=== PATIENT | female | born 1995 ===

== ENCOUNTER → 2021-05-10 | Outpatient (CLI) | payer OTHER ==
--- NOTE | 2021-05-10 14:51 | REP ---
INDICATION: MUSCLE STRAIN. COMPARISON: None. TECHNIQUE: Five views FINDINGS: The compartments are symmetric and well maintained there is no acute fracture, dislocation, or subluxation. IMPRESSION: Within normal limits <Electronically signed by Kehinde Xiong > 05/10/21 [id number]
== END ==
LOC: M SOG 14:21
PROVIDERS: ATTEND Orthopaedic Surgery Sports Medicine
DX: S86.111A Strain of other muscle(s) and tendon(s) of posterior muscle group at lower leg level, right leg, initial encounter (principal); X58.XXXA Exposure to other specified factors, initial encounter; Y92.9 Unspecified place or not applicable; Y93.9 Activity, unspecified; Y99.9 Unspecified external cause status